=== PATIENT | male | born 1970 | race Caucasian/White ===

== ENCOUNTER 2016-05-22 13:24 | Emergency (ER) | payer SELFPAY ==
[2016-05-22 12:27] LABS: INFLUENZA A SCREEN NEGATIVE (NEGATIVE); INFLUENZA B SCREEN NEGATIVE (NEGATIVE)
[~2016-05-22 13:24] MED LIST: ATV1 PO; CELEXA20 PO; CIP5 PO; FLAG500TAB PO; PREV30 PO
== END 2016-05-22 13:30 | disposition home or self-care (01) ==
LOC: ER 13:24
PROVIDERS: Hospitalist
DX: J02.9 Acute pharyngitis, unspecified (principal); I10 Essential (primary) hypertension; Z88.5 Allergy status to narcotic agent; Z79.899 Other long term (current) drug therapy
CPT/HCPCS: 87804; 87880; 99283